=== PATIENT | female | born 1980 | race African-American/Black ===

== ENCOUNTER 2017-06-15 11:05 | Emergency (ER) | payer SELFPAY ==
[~2017-06-15] VITALS: Ht 177.8 cm; Wt 127.9 kg
[2017-06-15 11:05] VITALS: BP_SYST 122
--- NOTE | 2017-06-15 11:22 | NUR ---
Placed in room 2 . Placed on car repairer apprentice, blood pressure machine and pulse oximeter. To gown for exam. Side rails up. Report received from Nader AGGARWAL.
--- NOTE | 2017-06-15 11:25 | NUR ---
ER at bedside examining patient.
--- NOTE | 2017-06-15 11:28 | NUR ---
Pt placed on seizure precautions.
--- NOTE | 2017-06-15 11:30 | NUR ---
Pt presents to ER s/p seizure episode while at work. Paramedics state seizure lasted approximately 30 seconds. No significant medical history or medication. Pt AOX4, but unable to recall moments leading up to seizure. No acute respiratory distress noted.
--- NOTE | 2017-06-15 11:35 | NUR ---
# 20 gauge angiocath placed to LAC. Use of asceptic technique. Opsite placed over site. Blood return noted. Blood for lab drawn from site. Flushed with 10 cc of normal saline. No evidence of infiltration noted. Patient tolerated well.
[2017-06-15 11:40] LABS: BASOPHILS % (AUTO) 0.6 % (0.0-2.0); EOSINOPHILS # (AUTO) 0.1 K/uL (0.0-0.4); EOSINOPHILS % (AUTO) 1.2 % (0.0-4.0); HEMATOCRIT 40.2 % (36-48); HEMOGLOBIN 13.2 g/dL (12.0-16.0); LYMPHOCYTES % (AUTO) 46.1 % (20.5-51.5); MEAN CORPUSCULAR HEMOGLOBIN 30 pg (27-31); MEAN CORPUSCULAR HGB CONC 33 % (32-36); MEAN CORPUSCULAR VOLUME 91 fL (79.0-98.0); MONOCYTES # (AUTO) 0.4 K/uL (0.0-1.0); MONOCYTES % (AUTO) 8.7 % (1.7-9.3); NEUTROPHILS % (AUTO) 43.4 % (40.0-70.0); PLATELET COUNT (AUTO) 275 K/uL (130-430); RED BLOOD CELL COUNT(AUTO) 4.42 MIL/uL (4.2-6.2); RED CELL DISTRIBUTION WIDTH 12.9 % (9.0-15.0); WHITE BLOOD COUNT (AUTO) 4.5 K/uL (4.8-10.8)
[2017-06-15 11:49] LABS: PROTHROMBIN TIME 10.2 SECS (9.5-12.5)
[2017-06-15 11:50] LABS: ALBUMIN 3.8 g/dL (3.4-4.8); CREATININE 0.97 mg/dL (0.55-1.30); POTASSIUM 4.4 mmol/L (3.5-5.1); TOTAL BILIRUBIN 0.5 mg/dL (0.0-1.0)
--- NOTE | 2017-06-15 12:00 | NUR ---
Patient transported to radiology via gurney, accompanied by rad staff.
--- NOTE | 2017-06-15 12:20 | NUR ---
Returned from radiology, back to [facility].
--- NOTE | 2017-06-15 13:00 | NUR ---
Pt has no seizure activity at this time.
[2017-06-15 13:30] VITALS: BP_SYST 125
--- NOTE | 2017-06-15 13:30 | NUR ---
Patient given written and verbal discharge instructions and verbalizes understanding. ER MD discussed with patient the results and treatment provided. Patient in stable condition. ID arm band removed. IV catheter removed intact and dressing applied, no active bleeding. No Rx given. Patient educated on pain management and to follow up with PMD. Pain Scale 0/10. Opportunity for questions provided and answered.
== END 2017-06-15 13:30 | disposition home or self-care (01) ==
LOC: SED 11:05
DX: R56.9 Unspecified convulsions (principal)
CPT/HCPCS: 36415; 70450-TC; 80053; 81025; 84703; 85025; 85610-TC; 85730-TC; 99285